=== PATIENT | male | born 1950 | race Caucasian/White ===

== ENCOUNTER 2017-03-12 09:28 | Inpatient (IN) | payer OTHER, MEDICAID ==
[~2017-03-12] VITALS: Ht 172.7 cm; Wt 75.8 kg
[2017-03-12] VITALS (13 sets, daily range): BP systolic 92–121
[2017-03-12] MEDS ORDERED: HYDROmorphone 1 MG INJ. 1 MG/ML AMPUL IVP ONE ×2 (09:45→11:00)
[2017-03-12] MEDS ORDERED: ONDANSETRON HCL 4 MG/2 ML VIAL IVP ONE ×2 (09:45→11:00)
[2017-03-12 09:53] LABS: BASOPHILS % (AUTO) 0.2 % (0.0-2.0); EOSINOPHILS # (AUTO) 0.1 K/uL (0.0-0.4); EOSINOPHILS % (AUTO) 0.5 % (0.0-4.0); HEMATOCRIT 27.5 % (36-54); HEMOGLOBIN 8.9 g/dL (14.0-18.0); LYMPHOCYTES # (AUTO) 1.1 K/uL (1.0-5.5); LYMPHOCYTES % (AUTO) 5.9 % (20.5-51.5); MEAN CORPUSCULAR HEMOGLOBIN 28 pg (27-31); MEAN CORPUSCULAR HGB CONC 32 % (32-36); MEAN CORPUSCULAR VOLUME 88 fL (79.0-98.0); MONOCYTES # (AUTO) 0.9 K/uL (0.0-1.0); MONOCYTES % (AUTO) 5.1 % (1.7-9.3); NEUTROPHILS # (AUTO) 16.2 K/uL (1.8-7.7); NEUTROPHILS % (AUTO) 88.3 % (40.0-70.0); PLATELET COUNT (AUTO) 513 K/uL (130-430); RED BLOOD CELL COUNT(AUTO) 3.13 MIL/uL (4.2-6.2); RED CELL DISTRIBUTION WIDTH 15.6 % (9.0-15.0); WHITE BLOOD COUNT (AUTO) 18.3 K/uL (4.8-10.8)
[2017-03-12] MEDS ORDERED: DILTIAZEM HCL 25 MG/5 ML VIAL IVP ONE ×2 (10:00→11:45)
[2017-03-12 10:02] LABS: CALCIUM 10.4 mg/dL (8.4-11.0); CREATININE 0.91 mg/dL (0.55-1.30)
[2017-03-12 10:05] LABS: INR 1.1 (0.80-1.20); PROTHROMBIN TIME 12.3 SECS (9.5-12.5)
[2017-03-12 10:07] LABS: POTASSIUM 2.9 mmol/L (3.5-5.1)
[2017-03-12 10:09] LABS: ALBUMIN 1.9 g/dL (3.4-4.8); TOTAL BILIRUBIN 0.3 mg/dL (0.0-1.0)
[2017-03-12] MEDS ORDERED: KCL 20 mEq in 100 mL (PREMIX) 100 ML IV ONE (10:15)
[2017-03-12] MEDS ORDERED: NS 500 ML IV ONE (10:15)
[2017-03-12] MEDS ORDERED: IOHEXOL 350 mgI/mL, 150 ML INFUS..BTL IV ONE (10:49)
[2017-03-12] MEDS ORDERED: DILTIAZEM HCL 156.25 MG in D5W 100 ML IV ONE (12:15)
[2017-03-12] MEDS ORDERED: INSU100V9 SUBCUT (12:30)
[2017-03-12] MEDS ORDERED: DILTIAZEM HCL 125 MG in D5W 100 ML IV ONE (12:30)
[2017-03-12] MEDS ORDERED: GLU500 PO (12:30)
[2017-03-12] MEDS ORDERED: SIMV80TA2 PO (12:30)
[2017-03-12] MEDS ORDERED: HYDR-1189 PO (12:30)
[2017-03-12] MEDS ORDERED: METO25TA3 PO (12:30)
[2017-03-12] MEDS ORDERED: ASPI81TA2 PO (12:30)
[2017-03-12] MEDS ORDERED: BENZ100C67 PO (12:30)
[2017-03-12] MEDS ORDERED: D5NS 500 ML IV ONE (12:45)
[2017-03-12] MEDS ORDERED: DEXTROSE 50%-WATER 50 ML DISP.SYRIN IVP PRN ×2 (13:00)
[2017-03-12] MEDS ORDERED: GLUCOSE 15 GM GEL (in 37.5 GM TUBE) PO PRN ×2 (13:00)
[2017-03-12] MEDS ORDERED: LEVALBUTEROL HCL 0.63 MG/3 ML VIAL.NEB INH PRN (14:15)
[2017-03-12] MEDS ORDERED: IPRATROPIUM BROM 0.5 MG/2.5 ML VIAL.NEB (ATROVENT) INH PRN (14:15)
[2017-03-12] MEDS ORDERED: ONDANSETRON HCL 4 MG/2 ML VIAL IVP PRN (15:30)
[2017-03-12] MEDS ORDERED: DOCUSATE SODIUM 100 MG CAPSULE PO PRN (15:30)
[2017-03-12] MEDS ORDERED: ZOLPIDEM TARTRATE 5 MG TABLET PO PRN (15:30)
[2017-03-12] MEDS ORDERED: LORazepam 2 MG/ML VIAL IVP PRN (15:30)
[2017-03-12] MEDS ORDERED: MORPHINE 2 MG/ML INJ. SYRINGE IVP PRN ×2 (15:30)
[2017-03-12] MEDS ORDERED: MAGNESIUM SULFATE 50 ML IV PRN (15:30)
[2017-03-12] MEDS ORDERED: PIPERACILLIN/TAZO 3.375/DEX-IS 50 ML IV SCH (15:30)
[2017-03-12] MEDS: INSULIN REGULAR, HUMAN 100 UNITS/ML, 10 ML VIAL (novoLIN R) SUBCUT PRN ×2 (16:45→20:45)
[2017-03-12] MEDS ORDERED: HYDROCORTISONE ACETATE 1 SUPP (ANUSOL HC) RC PRN (17:30)
[2017-03-12] MEDS: PIPERACILLIN/TAZO 3.375/DEX-IS 50 ML IV SCH ×2 (17:57→23:52)
[2017-03-12] MEDS: LEVALBUTEROL HCL 0.63 MG/3 ML VIAL.NEB INH SCH (20:15)
[2017-03-12] MEDS: IPRATROPIUM BROM 0.5 MG/2.5 ML VIAL.NEB (ATROVENT) INH SCH (20:15)
[2017-03-12] MEDS: HYDROmorphone 1 MG INJ. 1 MG/ML AMPUL IVP PRN (20:38)
[2017-03-12] MEDS ORDERED: DILTIAZEM HCL 30 MG TABLET PO ONE (22:00)
[2017-03-12] MEDS: HYDROcodone/ACETAMIN 10-325 MG TAB PO PRN (22:14)
[2017-03-13] VITALS (17 sets, daily range): BP systolic 109–143
[2017-03-13] MEDS: IPRATROPIUM BROM 0.5 MG/2.5 ML VIAL.NEB (ATROVENT) INH SCH ×4 (01:38→20:22)
[2017-03-13] MEDS: LEVALBUTEROL HCL 0.63 MG/3 ML VIAL.NEB INH SCH ×4 (01:38→20:22)
[2017-03-13] MEDS: HYDROcodone/ACETAMIN 10-325 MG TAB PO PRN ×4 (04:56→21:10)
[2017-03-13] MEDS: PIPERACILLIN/TAZO 3.375/DEX-IS 50 ML IV SCH ×4 (05:41→23:30)
[2017-03-13] MEDS: DILTIAZEM HCL 30 MG TABLET PO SCH ×4 (05:43→23:25)
[2017-03-13] MEDS: INSULIN REGULAR, HUMAN 100 UNITS/ML, 10 ML VIAL (novoLIN R) SUBCUT PRN ×4 (06:31→21:20)
[2017-03-13 06:50] LABS: ALBUMIN 1.7 g/dL (3.4-4.8); CALCIUM 9.6 mg/dL (8.4-11.0); CREATININE 0.78 mg/dL (0.55-1.30); TOTAL BILIRUBIN 0.3 mg/dL (0.0-1.0)
[2017-03-13 06:54] LABS: EOSINOPHILS # (AUTO) 0.1 K/uL (0.0-0.4); EOSINOPHILS % (AUTO) 0.4 % (0.0-4.0); HEMATOCRIT 24.4 % (36-54); HEMOGLOBIN 7.9 g/dL (14.0-18.0); LYMPHOCYTES # (AUTO) 0.6 K/uL (1.0-5.5); MEAN CORPUSCULAR HEMOGLOBIN 28 pg (27-31); MEAN CORPUSCULAR HGB CONC 32 % (32-36); MEAN CORPUSCULAR VOLUME 88 fL (79.0-98.0); MONOCYTES # (AUTO) 0.9 K/uL (0.0-1.0); MONOCYTES % (AUTO) 5.5 % (1.7-9.3); NEUTROPHILS # (AUTO) 13.9 K/uL (1.8-7.7); NEUTROPHILS % (AUTO) 90.1 % (40.0-70.0); PLATELET COUNT (AUTO) 430 K/uL (130-430); RED BLOOD CELL COUNT(AUTO) 2.78 MIL/uL (4.2-6.2); RED CELL DISTRIBUTION WIDTH 15.6 % (9.0-15.0); WHITE BLOOD COUNT (AUTO) 15.5 K/uL (4.8-10.8)
[2017-03-13 07:01] LABS: POTASSIUM 2.8 mmol/L (3.5-5.1)
[2017-03-13] MEDS: POTASSIUM CHLORIDE 10 MEQ TAB.PRT.SR PO PRN (07:10)
[2017-03-13] MEDS ORDERED: POTASSIUM CHLORIDE 20 MEQ TAB.PRT.SR PO ONE (10:30)
[2017-03-13 15:35] LABS: CALCIUM 9.7 mg/dL (8.4-11.0); CREATININE 0.96 mg/dL (0.55-1.30); POTASSIUM 3.2 mmol/L (3.5-5.1)
[2017-03-13] MEDS: ACETAMINOPHEN 325 MG TABLET PO PRN (21:09)
[2017-03-13] MEDS: HYDROmorphone 1 MG INJ. 1 MG/ML AMPUL IVP PRN (23:24)
[2017-03-14] VITALS (7 sets, daily range): BP systolic 102–137
[2017-03-14] MEDS: IPRATROPIUM BROM 0.5 MG/2.5 ML VIAL.NEB (ATROVENT) INH SCH ×4 (01:22→19:42)
[2017-03-14] MEDS: LEVALBUTEROL HCL 0.63 MG/3 ML VIAL.NEB INH SCH ×4 (01:22→19:42)
[2017-03-14] MEDS: HYDROcodone/ACETAMIN 10-325 MG TAB PO PRN ×3 (05:00→17:41)
[2017-03-14] MEDS: PIPERACILLIN/TAZO 3.375/DEX-IS 50 ML IV SCH ×3 (05:45→17:41)
[2017-03-14] MEDS: DILTIAZEM HCL 30 MG TABLET PO SCH ×2 (05:47→11:59)
[2017-03-14] MEDS: INSULIN REGULAR, HUMAN 100 UNITS/ML, 10 ML VIAL (novoLIN R) SUBCUT PRN ×4 (06:25→21:20)
[2017-03-14 06:59] LABS: HEMATOCRIT 24.8 % (36-54); HEMOGLOBIN 8.1 g/dL (14.0-18.0); MEAN CORPUSCULAR HEMOGLOBIN 29 pg (27-31); MEAN CORPUSCULAR HGB CONC 33 % (32-36); MEAN CORPUSCULAR VOLUME 88 fL (79.0-98.0); PLATELET COUNT (AUTO) 441 K/uL (130-430); RED BLOOD CELL COUNT(AUTO) 2.83 MIL/uL (4.2-6.2); RED CELL DISTRIBUTION WIDTH 15.6 % (9.0-15.0); WHITE BLOOD COUNT (AUTO) 16.6 K/uL (4.8-10.8)
[2017-03-14 07:06] LABS: CALCIUM 9.3 mg/dL (8.4-11.0); CREATININE 0.79 mg/dL (0.55-1.30); POTASSIUM 3.1 mmol/L (3.5-5.1)
[2017-03-14 07:42] LABS: BAND % (MANUAL) 3 % (0-6); BASOPHILS % (MANUAL) 0 % (0-2); EOSINOPHILS % (MANUAL) 0 % (0-7); LYMPHOCYTES % (MANUAL) 4 % (20-46); MONOCYTES % (MANUAL) 6 % (0-11)
[2017-03-14] MEDS: POTASSIUM CHLORIDE 10 MEQ TAB.PRT.SR PO PRN (08:37)
[2017-03-14] MEDS: HYDROmorphone 1 MG INJ. 1 MG/ML AMPUL IVP PRN (08:52)
[2017-03-14] MEDS ORDERED: POTASSIUM CHLORIDE 20 MEQ TAB.PRT.SR PO ONE (10:30)
[2017-03-14] MEDS ORDERED: BENZOCAINE/MENTHOL 1 EACH LOZENGE MM PRN (10:45)
[2017-03-14] MEDS ORDERED: LIDOCAINE VISCOUS 2%, 15 ML UDC MM PRN (10:45)
[2017-03-14] MEDS ORDERED: MAGNESIUM SULFATE 50 ML IV ONE (11:00)
[2017-03-14] MEDS: ACETAMINOPHEN 325 MG TABLET PO PRN (12:00)
[2017-03-14] MEDS ORDERED: AMIODARONE HCL 200 MG TABLET PO ONE (14:30)
[2017-03-14] MEDS ORDERED: DILTIAZEM HCL 120 MG CAP.SR.24H PO ONE (14:30)
[2017-03-14] MEDS: methylPREDNISolone SOD SUCC 40 MG/ML VIAL IVP SCH (21:03)
[2017-03-15] MEDS: PIPERACILLIN/TAZO 3.375/DEX-IS 50 ML IV SCH ×5 (00:27→23:48)
[2017-03-15 01:10] VITALS: BP_SYST 122
[2017-03-15] MEDS: LEVALBUTEROL HCL 0.63 MG/3 ML VIAL.NEB INH SCH ×4 (01:27→19:38)
[2017-03-15] MEDS: IPRATROPIUM BROM 0.5 MG/2.5 ML VIAL.NEB (ATROVENT) INH SCH ×4 (01:31→19:38)
[2017-03-15 04:00] VITALS: BP_SYST 118
[2017-03-15] MEDS: INSULIN REGULAR, HUMAN 100 UNITS/ML, 10 ML VIAL (novoLIN R) SUBCUT PRN ×4 (06:09→20:50)
[2017-03-15 07:19] LABS: BASOPHILS % (AUTO) 0.1 % (0.0-2.0); HEMOGLOBIN 8.5 g/dL (14.0-18.0); LYMPHOCYTES # (AUTO) 0.7 K/uL (1.0-5.5); LYMPHOCYTES % (AUTO) 3.5 % (20.5-51.5); MEAN CORPUSCULAR HEMOGLOBIN 29 pg (27-31); MEAN CORPUSCULAR HGB CONC 33 % (32-36); MEAN CORPUSCULAR VOLUME 88 fL (79.0-98.0); MONOCYTES # (AUTO) 0.1 K/uL (0.0-1.0); MONOCYTES % (AUTO) 0.7 % (1.7-9.3); NEUTROPHILS # (AUTO) 18.4 K/uL (1.8-7.7); NEUTROPHILS % (AUTO) 95.7 % (40.0-70.0); PLATELET COUNT (AUTO) 451 K/uL (130-430); RED BLOOD CELL COUNT(AUTO) 2.95 MIL/uL (4.2-6.2); RED CELL DISTRIBUTION WIDTH 15.8 % (9.0-15.0); WHITE BLOOD COUNT (AUTO) 19.2 K/uL (4.8-10.8)
[2017-03-15 07:26] LABS: CALCIUM 9.3 mg/dL (8.4-11.0); CREATININE 0.83 mg/dL (0.55-1.30); POTASSIUM 4.2 mmol/L (3.5-5.1)
[2017-03-15] MEDS: methylPREDNISolone SOD SUCC 40 MG/ML VIAL IVP SCH ×2 (09:27→21:02)
[2017-03-15] MEDS: LIDOCAINE VISCOUS 2%, 15 ML UDC MM SCH ×4 (09:33→20:51)
[2017-03-15] MEDS: BENZOCAINE/MENTHOL 1 EACH LOZENGE MM SCH ×4 (09:33→20:51)
[2017-03-15 12:57] VITALS: BP_SYST 118
[2017-03-15] MEDS: HYDROcodone/ACETAMIN 10-325 MG TAB PO PRN ×4 (13:45→20:58)
[2017-03-15] MEDS ORDERED: AMIODARONE HCL 200 MG TABLET PO ONE (13:45)
[2017-03-15 16:31] VITALS: BP_SYST 118
[2017-03-15 16:45] VITALS: BP_SYST 115
[2017-03-15 20:00] VITALS: BP_SYST 118
[2017-03-16 00:46] VITALS: BP_SYST 127
[2017-03-16] MEDS: LIDOCAINE VISCOUS 2%, 15 ML UDC MM SCH ×4 (01:00→14:45)
[2017-03-16] MEDS: BENZOCAINE/MENTHOL 1 EACH LOZENGE MM SCH ×4 (01:00→14:45)
[2017-03-16] MEDS: LEVALBUTEROL HCL 0.63 MG/3 ML VIAL.NEB INH SCH ×3 (01:15→13:26)
[2017-03-16] MEDS: IPRATROPIUM BROM 0.5 MG/2.5 ML VIAL.NEB (ATROVENT) INH SCH ×3 (01:16→13:26)
[2017-03-16] MEDS: PIPERACILLIN/TAZO 3.375/DEX-IS 50 ML IV SCH ×2 (05:32→12:35)
[2017-03-16] MEDS ORDERED: DILT120C89 PO (05:57)
[2017-03-16] MEDS ORDERED: RIVA15TA PO (05:57)
[2017-03-16] MEDS ORDERED: AMI200 PO (05:57)
[2017-03-16] MEDS ORDERED: SULF1TAB48 PO (05:57)
[2017-03-16] MEDS: INSULIN REGULAR, HUMAN 100 UNITS/ML, 10 ML VIAL (novoLIN R) SUBCUT PRN ×2 (06:02→12:38)
[2017-03-16 06:08] VITALS: BP_SYST 130
[2017-03-16 06:38] LABS: HEMATOCRIT 26.9 % (36-54); HEMOGLOBIN 8.4 g/dL (14.0-18.0); MEAN CORPUSCULAR HEMOGLOBIN 27 pg (27-31); MEAN CORPUSCULAR HGB CONC 31 % (32-36); MEAN CORPUSCULAR VOLUME 88 fL (79.0-98.0); PLATELET COUNT (AUTO) 542 K/uL (130-430); RED BLOOD CELL COUNT(AUTO) 3.07 MIL/uL (4.2-6.2)
[2017-03-16 06:43] LABS: CALCIUM 8.8 mg/dL (8.4-11.0); CREATININE 0.75 mg/dL (0.55-1.30); POTASSIUM 4.3 mmol/L (3.5-5.1)
[2017-03-16 07:03] LABS: WHITE BLOOD COUNT (AUTO) 21.7 K/uL (4.8-10.8)
[2017-03-16] MEDS ORDERED: RIVAROXABAN 15 MG TABLET PO SCH (08:00)
[2017-03-16 08:15] VITALS: BP_SYST 114
[2017-03-16 08:25] LABS: ATYPICAL LYMPHOCYTES % 0 % (0-0); BAND % (MANUAL) 2 % (0-6); BASOPHILS % (MANUAL) 0 % (0-2); EOSINOPHILS % (MANUAL) 0 % (0-7); LYMPHOCYTES % (MANUAL) 4 % (20-46); MONOCYTES % (MANUAL) 2 % (0-11)
[2017-03-16] MEDS: HYDROcodone/ACETAMIN 10-325 MG TAB PO PRN (08:59)
[2017-03-16] MEDS ORDERED: AMIODARONE HCL 200 MG TABLET PO SCH (09:00)
[2017-03-16] MEDS ORDERED: DILTIAZEM HCL 120 MG CAP.SR.24H PO SCH (09:00)
[2017-03-16] MEDS ORDERED: METOPROLOL SUCCINATE 25 MG TAB.SR.24H (TOPROL XL) PO SCH (09:00)
[2017-03-16] MEDS: methylPREDNISolone SOD SUCC 40 MG/ML VIAL IVP SCH (09:44)
[2017-03-16 11:43] VITALS: BP_SYST 110
[2017-03-16 15:34] VITALS: BP_SYST 109
[2017-03-16 15:39] VITALS: BP_SYST 109
[2017-03-17] MEDS ORDERED: PREDNISONE 20 MG TABLET PO SCH (09:00)
== END 2017-03-16 17:00 | disposition home health service (06) | DRG 377 ==
LOC: SED 09:28 → SIC 12:42 → STU 03-13 14:26
PROVIDERS: ADMIT General Practice; ATTEND General Practice
DX: K62.5 Hemorrhage of anus and rectum (principal); I26.99 Other pulmonary embolism without acute cor pulmonale; J69.0 Pneumonitis due to inhalation of food and vomit; E43 Unspecified severe protein-calorie malnutrition; I82.401 Acute embolism and thrombosis of unspecified deep veins of right lower extremity; C79.31 Secondary malignant neoplasm of brain; E11.9 Type 2 diabetes mellitus without complications; D50.0 Iron deficiency anemia secondary to blood loss (chronic); C79.51 Secondary malignant neoplasm of bone; C34.90 Malignant neoplasm of unspecified part of unspecified bronchus or lung; E78.5 Hyperlipidemia, unspecified; K92.2 Gastrointestinal hemorrhage, unspecified; I48.0 Paroxysmal atrial fibrillation; J98.01 Acute bronchospasm; K64.9 Unspecified hemorrhoids; E66.9 Obesity, unspecified; K59.09 Other constipation; K62.7 Radiation proctitis; E87.6 Hypokalemia; J44.9 Chronic obstructive pulmonary disease, unspecified; I25.10 Atherosclerotic heart disease of native coronary artery without angina pectoris; I10 Essential (primary) hypertension; I25.2 Old myocardial infarction; Z95.5 Presence of coronary angioplasty implant and graft; Z87.891 Personal history of nicotine dependence; Z92.3 Personal history of irradiation; Z79.899 Other long term (current) drug therapy; Z79.82 Long term (current) use of aspirin; Z68.25 Body mass index [BMI] 25.0-25.9, adult
CPT/HCPCS: 36415; 71010; 71275; 80048; 80053; 82272; 82962; 83605; 83735-TC; 83880; 84484; 85007; 85025; 85027; 85610-TC; 85730-TC; 87040-TC; 87081; 93005; 93306; 94640; 94760; 96365; 96375; 96376; 97110-GP; 97116-GP; 97530-GP; 99291; 99292; J1030; J1170; J1815; J1956; J2001; J2270; J2405; J2543; J3475; J3480; J3490; J7040; J7042; J7050; J7060; Q9967

== ENCOUNTER 2017-03-28 23:23 | Inpatient (IN) | payer OTHER, MEDICAID ==
[~2017-03-28] VITALS: Ht 170.2 cm; Wt 78.5 kg
[2017-03-28 23:23] VITALS: BP_SYST 152
[~2017-03-28 23:23] MED LIST: AMI200 PO; ASPI81TA2 PO; BENZ100C67 PO; DILT120C89 PO; GLU500 PO; HYDR-1189 PO; INSU100V9 SUBCUT; METO25TA3 PO; RIVA15TA PO; SIMV80TA2 PO; SULF1TAB48 PO
[2017-03-28] MEDS ORDERED: NACL 0.9% 1,000 ML IV ONE (23:30)
[2017-03-28 23:59] LABS: MEAN CORPUSCULAR HEMOGLOBIN 28 pg (27-31); MEAN CORPUSCULAR HGB CONC 33 % (32-36)
[2017-03-29] VITALS (8 sets, daily range): BP systolic 104–127
[2017-03-29 00:01] LABS: HEMATOCRIT 26.3 % (36-54); HEMOGLOBIN 8.6 g/dL (14.0-18.0); MEAN CORPUSCULAR VOLUME 86 fL (79.0-98.0); PLATELET COUNT (AUTO) 482 K/uL (130-430); RED BLOOD CELL COUNT(AUTO) 3.05 MIL/uL (4.2-6.2); RED CELL DISTRIBUTION WIDTH 16.9 % (9.0-15.0); WHITE BLOOD COUNT (AUTO) 23.1 K/uL (4.8-10.8)
[2017-03-29] MEDS ORDERED: LEVO750T45 PO (00:02)
[2017-03-29] MEDS ORDERED: DOCU-144 PO (00:02)
[2017-03-29] MEDS ORDERED: DILT240C54 PO (00:02)
[2017-03-29] MEDS ORDERED: PIPERACILLIN/TAZOBACTAM 3.375 GM/VIAL (ZOSYN) IV ONE ×2 (00:11→02:07)
[2017-03-29] MEDS ORDERED: PIPERACILLIN/TAZO 3.375 GM in NS 50 ML IV ONE (00:15)
[2017-03-29 00:17] LABS: INR 1.6 (0.80-1.20); PROTHROMBIN TIME 16.4 SECS (9.5-12.5)
[2017-03-29 00:24] LABS: CALCIUM 8.6 mg/dL (8.4-11.0); CREATININE 0.9 mg/dL (0.55-1.30); POTASSIUM 3.9 mmol/L (3.5-5.1)
[2017-03-29 00:28] LABS: ATYPICAL LYMPHOCYTES % 0 % (0-0); BAND % (MANUAL) 3 % (0-6); BASOPHILS % (MANUAL) 0 % (0-2); EOSINOPHILS % (MANUAL) 1 % (0-7); LYMPHOCYTES % (MANUAL) 1 % (20-46); MONOCYTES % (MANUAL) 2 % (0-11)
[2017-03-29 00:33] LABS: ALBUMIN 1.7 g/dL (3.4-4.8); TOTAL BILIRUBIN 0.4 mg/dL (0.0-1.0)
[2017-03-29 00:44] LABS: BILIRUBIN,URINE NEGATIVE (NEGATIVE); BLOOD, URINE TRACE (NEGATIVE); CLARITY/URINE CLEAR (CLEAR); COLOR,URINE YELLOW (YELLOW); GLUCOSE,URINE NEGATIVE (NEGATIVE); KETONES,URINE NEGATIVE (NEGATIVE); LEUKOCYTE ESTERASE ,URINE NEGATIVE (NEGATIVE); NITRITE, URINE NEGATIVE (NEGATIVE); PROTEIN URINE NEGATIVE (NEGATIVE); UROBILINOGEN,URINE 0.2 (0.2-1.0)
[2017-03-29 00:50] LABS: BACTERIA,URINE FEW /HPF (None Seen); MUCUS,URINE 1+ /LPF (None Seen); RBC,URINE 0-3 /HPF (0-3)
[2017-03-29] MEDS ORDERED: NACL 0.9% 1,000 ML IV ONE (01:00)
[2017-03-29] MEDS ORDERED: VANCOMYCIN HCL 1,000 MG in NS 250 ML IV ONE (01:00)
[2017-03-29] MEDS ORDERED: VANCOMYCIN HCL 1000 MG/VIAL IV ONE (02:07)
[2017-03-29] MEDS: NACL 0.9% 1,000 ML IV SCH ×4 (02:19→21:38)
[2017-03-29] MEDS: PIPERACILLIN/TAZO 3.375 GM in NS 50 ML IV SCH ×3 (06:08→19:25)
[2017-03-29] MEDS: INSULIN REGULAR, HUMAN 100 UNITS/ML, 10 ML VIAL (novoLIN R) SUBCUT PRN ×2 (06:11→12:34)
[2017-03-29] MEDS ORDERED: DOCUSATE SODIUM 100 MG CAPSULE PO SCH (09:00)
[2017-03-29] MEDS ORDERED: RIVAROXABAN 15 MG TABLET PO SCH (09:15)
[2017-03-29] MEDS ORDERED: INSULIN GLARGINE 100 UNITS/ML 10 ML VIAL SUBCUT SCH (09:15)
[2017-03-29] MEDS ORDERED: IPRATROPIUM/ALBUTEROL SULFATE 3 ML AMPUL.NEB INH PRN (09:30)
[2017-03-29] MEDS: AMIODARONE HCL 200 MG TABLET PO SCH (10:26)
[2017-03-29] MEDS: HYDROcodone/ACETAMIN 5-325 MG TAB (NORCO/ VICODIN) PO PRN (10:27)
[2017-03-29] MEDS ORDERED: MINERAL OIL 30 ML UDC PO ONE (10:30)
[2017-03-29] MEDS ORDERED: LACTULOSE 20 GM/30 ML UDC PO ONE (10:30)
[2017-03-29] MEDS ORDERED: DOCUSATE SODIUM 250 MG CAPSULE PO ONE (10:30)
[2017-03-29 11:12] LABS: CALCIUM 8.8 mg/dL (8.4-11.0); CREATININE 0.75 mg/dL (0.55-1.30); POTASSIUM 3.7 mmol/L (3.5-5.1)
[2017-03-29 11:13] LABS: EOSINOPHILS # (AUTO) 0.1 K/uL (0.0-0.4); EOSINOPHILS % (AUTO) 0.5 % (0.0-4.0); HEMATOCRIT 32.1 % (36-54); HEMOGLOBIN 10.3 g/dL (14.0-18.0); LYMPHOCYTES # (AUTO) 0.3 K/uL (1.0-5.5); LYMPHOCYTES % (AUTO) 1.4 % (20.5-51.5); MEAN CORPUSCULAR HEMOGLOBIN 28 pg (27-31); MEAN CORPUSCULAR HGB CONC 32 % (32-36); MEAN CORPUSCULAR VOLUME 88 fL (79.0-98.0); MONOCYTES # (AUTO) 0.3 K/uL (0.0-1.0); MONOCYTES % (AUTO) 1.6 % (1.7-9.3); PLATELET COUNT (AUTO) 505 K/uL (130-430); RED BLOOD CELL COUNT(AUTO) 3.65 MIL/uL (4.2-6.2); RED CELL DISTRIBUTION WIDTH 16.9 % (9.0-15.0); WHITE BLOOD COUNT (AUTO) 21.3 K/uL (4.8-10.8)
[2017-03-29 11:15] LABS: BASOPHILS # (AUTO) 0.1 K/uL (0.0-0.2); BASOPHILS % (AUTO) 0.5 % (0.0-2.0)
[2017-03-29 11:16] LABS: NEUTROPHILS # (AUTO) 20.4 K/uL (1.8-7.7)
[2017-03-29] MEDS: IPRATROPIUM/ALBUTEROL SULFATE 3 ML AMPUL.NEB INH SCH ×4 (11:27→23:12)
[2017-03-29] MEDS ORDERED: PANTOPRAZOLE SODIUM 40 MG/VIAL (PROTONIX) IVP ONE (13:00)
[2017-03-29] MEDS: BENZONATATE 100 MG CAPSULE (TESSALON) PO SCH ×2 (14:49→21:38)
[2017-03-29] MEDS ORDERED: ONDANSETRON HCL 4 MG/2 ML VIAL ONE (15:44)
[2017-03-29] MEDS ORDERED: ONDANSETRON HCL 4 MG/2 ML VIAL IVP PRN (15:45)
[2017-03-29] MEDS: ACETAMINOPHEN 325 MG TABLET PO PRN (16:58)
[2017-03-29 17:45] LABS: BASOPHILS # (AUTO) 0.2 K/uL (0.0-0.2); BASOPHILS % (AUTO) 0.6 % (0.0-2.0); EOSINOPHILS # (AUTO) 0.1 K/uL (0.0-0.4); EOSINOPHILS % (AUTO) 0.5 % (0.0-4.0); HEMATOCRIT 25.1 % (36-54); LYMPHOCYTES # (AUTO) 0.3 K/uL (1.0-5.5); LYMPHOCYTES % (AUTO) 1.3 % (20.5-51.5); MEAN CORPUSCULAR HEMOGLOBIN 30 pg (27-31); MEAN CORPUSCULAR HGB CONC 34 % (32-36); MEAN CORPUSCULAR VOLUME 89 fL (79.0-98.0); MONOCYTES # (AUTO) 0.5 K/uL (0.0-1.0); MONOCYTES % (AUTO) 1.8 % (1.7-9.3); NEUTROPHILS # (AUTO) 24.6 K/uL (1.8-7.7); NEUTROPHILS % (AUTO) 95.8 % (40.0-70.0); PLATELET COUNT (AUTO) 459 K/uL (130-430); RED BLOOD CELL COUNT(AUTO) 2.84 MIL/uL (4.2-6.2); RED CELL DISTRIBUTION WIDTH 17.1 % (9.0-15.0); WHITE BLOOD COUNT (AUTO) 25.7 K/uL (4.8-10.8)
[2017-03-29 17:46] LABS: HEMOGLOBIN 8.4 g/dL (14.0-18.0)
[2017-03-29] MEDS: VANCOMYCIN HCL 1,000 MG in NS 250 ML IV SCH (19:59)
[2017-03-29] MEDS: PANTOPRAZOLE SODIUM 40 MG/VIAL (PROTONIX) IVP SCH (21:37)
[2017-03-29] MEDS: DOCUSATE SODIUM 250 MG CAPSULE PO SCH (21:38)
[2017-03-30] VITALS (7 sets, daily range): BP systolic 103–141
[2017-03-30] MEDS: PIPERACILLIN/TAZO 3.375 GM in NS 50 ML IV SCH ×5 (00:37→23:57)
[2017-03-30] MEDS: ACETAMINOPHEN 325 MG TABLET PO PRN ×2 (01:31→16:30)
[2017-03-30] MEDS: HYDROcodone/ACETAMIN 5-325 MG TAB (NORCO/ VICODIN) PO PRN ×3 (02:04→19:49)
[2017-03-30] MEDS: IPRATROPIUM/ALBUTEROL SULFATE 3 ML AMPUL.NEB INH SCH ×5 (03:00→23:38)
[2017-03-30] MEDS: NACL 0.9% 1,000 ML IV SCH ×4 (05:40→18:51)
[2017-03-30] MEDS: VANCOMYCIN HCL 1,000 MG in NS 250 ML IV SCH (06:32)
[2017-03-30 07:07] LABS: BASOPHILS # (AUTO) 0.1 K/uL (0.0-0.2); BASOPHILS % (AUTO) 0.3 % (0.0-2.0); EOSINOPHILS # (AUTO) 0.1 K/uL (0.0-0.4); EOSINOPHILS % (AUTO) 0.7 % (0.0-4.0); HEMATOCRIT 24.4 % (36-54); LYMPHOCYTES # (AUTO) 0.3 K/uL (1.0-5.5); LYMPHOCYTES % (AUTO) 1.8 % (20.5-51.5); MEAN CORPUSCULAR HEMOGLOBIN 29 pg (27-31); MEAN CORPUSCULAR HGB CONC 33 % (32-36); MEAN CORPUSCULAR VOLUME 87 fL (79.0-98.0); MONOCYTES # (AUTO) 0.7 K/uL (0.0-1.0); MONOCYTES % (AUTO) 3.9 % (1.7-9.3); NEUTROPHILS # (AUTO) 17.3 K/uL (1.8-7.7); NEUTROPHILS % (AUTO) 93.3 % (40.0-70.0); PLATELET COUNT (AUTO) 407 K/uL (130-430); RED BLOOD CELL COUNT(AUTO) 2.79 MIL/uL (4.2-6.2); RED CELL DISTRIBUTION WIDTH 16.8 % (9.0-15.0)
[2017-03-30 07:22] LABS: WHITE BLOOD COUNT (AUTO) 18.5 K/uL (4.8-10.8)
[2017-03-30 07:27] LABS: CALCIUM 7.9 mg/dL (8.4-11.0); CREATININE 0.76 mg/dL (0.55-1.30); POTASSIUM 3.1 mmol/L (3.5-5.1)
[2017-03-30] MEDS ORDERED: ASPIRIN 81 MG TAB.CHEW PO SCH (09:00)
[2017-03-30] MEDS ORDERED: DILTIAZEM HCL 240 MG CAP.SR.24H PO SCH (09:00)
[2017-03-30] MEDS: LACTULOSE 20 GM/30 ML UDC PO SCH (09:34)
[2017-03-30] MEDS: PANTOPRAZOLE SODIUM 40 MG/VIAL (PROTONIX) IVP SCH ×2 (09:34→20:28)
[2017-03-30] MEDS: DOCUSATE SODIUM 250 MG CAPSULE PO SCH ×2 (09:35→20:28)
[2017-03-30] MEDS: SIMVASTATIN 40 MG TABLET PO SCH (09:35)
[2017-03-30] MEDS: BENZONATATE 100 MG CAPSULE (TESSALON) PO SCH ×2 (09:35→14:46)
[2017-03-30] MEDS: AMIODARONE HCL 200 MG TABLET PO SCH (09:36)
[2017-03-30] MEDS: FLUCONAZOLE 200 MG TABLET (DIFLUCAN) PO SCH (11:00)
[2017-03-30] MEDS: INSULIN REGULAR, HUMAN 100 UNITS/ML, 10 ML VIAL (novoLIN R) SUBCUT PRN ×3 (11:59→20:42)
[2017-03-30] MEDS ORDERED: FLUCONAZOLE 200 MG TABLET (DIFLUCAN) PO ONE (12:00)
[2017-03-30] MEDS: AZITHROMYCIN 500 MG in NS 250 ML IV SCH (13:26)
[2017-03-30] MEDS: DILTIAZEM HCL 30 MG TABLET PO SCH ×2 (17:30→22:00)
[2017-03-30] MEDS ORDERED: DILTIAZEM HCL 30 MG TABLET PO ONE (18:45)
[2017-03-30] MEDS: POTASSIUM CHLORIDE 20 MEQ TAB.PRT.SR PO SCH (20:28)
[2017-03-30] MEDS: BENZONATATE 100 MG CAPSULE (TESSALON) PO PRN (23:54)
[2017-03-31] VITALS (7 sets, daily range): BP systolic 98–137
[2017-03-31] MEDS: ACETAMINOPHEN 325 MG TABLET PO PRN ×3 (00:04→21:52)
[2017-03-31] MEDS: IPRATROPIUM/ALBUTEROL SULFATE 3 ML AMPUL.NEB INH SCH ×6 (03:00→23:00)
[2017-03-31] MEDS: PIPERACILLIN/TAZO 3.375 GM in NS 50 ML IV SCH ×4 (06:01→23:25)
[2017-03-31] MEDS: DILTIAZEM HCL 30 MG TABLET PO SCH ×3 (06:05→21:47)
[2017-03-31 07:10] LABS: BASOPHILS % (AUTO) 0.1 % (0.0-2.0); EOSINOPHILS # (AUTO) 0.2 K/uL (0.0-0.4); HEMATOCRIT 25.9 % (36-54); HEMOGLOBIN 8.4 g/dL (14.0-18.0); LYMPHOCYTES # (AUTO) 0.6 K/uL (1.0-5.5); LYMPHOCYTES % (AUTO) 3.1 % (20.5-51.5); MEAN CORPUSCULAR HEMOGLOBIN 29 pg (27-31); MEAN CORPUSCULAR HGB CONC 32 % (32-36); MEAN CORPUSCULAR VOLUME 89 fL (79.0-98.0); MONOCYTES # (AUTO) 1.1 K/uL (0.0-1.0); MONOCYTES % (AUTO) 5.4 % (1.7-9.3); NEUTROPHILS # (AUTO) 18.3 K/uL (1.8-7.7); NEUTROPHILS % (AUTO) 90.4 % (40.0-70.0); PLATELET COUNT (AUTO) 370 K/uL (130-430); RED CELL DISTRIBUTION WIDTH 16.1 % (9.0-15.0); WHITE BLOOD COUNT (AUTO) 20.2 K/uL (4.8-10.8)
[2017-03-31 07:37] LABS: ALBUMIN 1.4 g/dL (3.4-4.8); CALCIUM 8.4 mg/dL (8.4-11.0); CREATININE 0.77 mg/dL (0.55-1.30); POTASSIUM 3.4 mmol/L (3.5-5.1); TOTAL BILIRUBIN 0.6 mg/dL (0.0-1.0)
[2017-03-31] MEDS: PANTOPRAZOLE SODIUM 40 MG/VIAL (PROTONIX) IVP SCH ×2 (08:30→21:45)
[2017-03-31] MEDS: SIMVASTATIN 40 MG TABLET PO SCH (08:30)
[2017-03-31] MEDS: POTASSIUM CHLORIDE 20 MEQ TAB.PRT.SR PO SCH ×2 (08:30→21:46)
[2017-03-31] MEDS: LACTULOSE 20 GM/30 ML UDC PO SCH (08:30)
[2017-03-31] MEDS: BENZONATATE 100 MG CAPSULE (TESSALON) PO PRN (08:31)
[2017-03-31] MEDS: FLUCONAZOLE 200 MG TABLET (DIFLUCAN) PO SCH (08:31)
[2017-03-31] MEDS: AMIODARONE HCL 200 MG TABLET PO SCH (08:31)
[2017-03-31] MEDS: DOCUSATE SODIUM 250 MG CAPSULE PO SCH ×2 (08:31→21:47)
[2017-03-31] MEDS: HYDROcodone/ACETAMIN 5-325 MG TAB (NORCO/ VICODIN) PO PRN ×3 (08:40→23:24)
[2017-03-31] MEDS: INSULIN REGULAR, HUMAN 100 UNITS/ML, 10 ML VIAL (novoLIN R) SUBCUT PRN ×2 (11:55→21:52)
[2017-03-31] MEDS: AZITHROMYCIN 500 MG in NS 250 ML IV SCH (12:25)
[2017-03-31] MEDS ORDERED: ENOXAPARIN SODIUM 40 MG/0.4 ML SYRINGE SUBCUT ONE (22:15)
[2017-03-31] MEDS: ENOXAPARIN SODIUM 40 MG/0.4 ML SYRINGE SUBCUT SCH (22:39)
[2017-04-01] VITALS: BP_SYST 124
[2017-04-01] MEDS: IPRATROPIUM/ALBUTEROL SULFATE 3 ML AMPUL.NEB INH SCH ×3 (03:00→11:00)
[2017-04-01 05:30] VITALS: BP_SYST 134
[2017-04-01] MEDS: PIPERACILLIN/TAZO 3.375 GM in NS 50 ML IV SCH (06:57)
[2017-04-01] MEDS: INSULIN REGULAR, HUMAN 100 UNITS/ML, 10 ML VIAL (novoLIN R) SUBCUT PRN (07:03)
[2017-04-01] MEDS: DILTIAZEM HCL 30 MG TABLET PO SCH (07:12)
[2017-04-01 07:16] LABS: CALCIUM 8.8 mg/dL (8.4-11.0); CREATININE 0.79 mg/dL (0.55-1.30)
[2017-04-01 08:00] VITALS: BP_SYST 129
[2017-04-01 08:03] LABS: HEMATOCRIT 28.8 % (36-54); HEMOGLOBIN 9.4 g/dL (14.0-18.0); MEAN CORPUSCULAR HEMOGLOBIN 30 pg (27-31); MEAN CORPUSCULAR HGB CONC 33 % (32-36); MEAN CORPUSCULAR VOLUME 91 fL (79.0-98.0); PLATELET COUNT (AUTO) 405 K/uL (130-430); RED BLOOD CELL COUNT(AUTO) 3.17 MIL/uL (4.2-6.2); RED CELL DISTRIBUTION WIDTH 17.4 % (9.0-15.0); WHITE BLOOD COUNT (AUTO) 20.1 K/uL (4.8-10.8)
[2017-04-01 08:16] LABS: POTASSIUM 3.9 mmol/L (3.5-5.1)
[2017-04-01] MEDS: ACETAMINOPHEN 325 MG TABLET PO PRN (08:50)
[2017-04-01] MEDS: ENOXAPARIN SODIUM 40 MG/0.4 ML SYRINGE SUBCUT SCH (08:50)
[2017-04-01] MEDS: PANTOPRAZOLE SODIUM 40 MG/VIAL (PROTONIX) IVP SCH (08:50)
[2017-04-01] MEDS: LACTULOSE 20 GM/30 ML UDC PO SCH (08:50)
[2017-04-01] MEDS: FLUCONAZOLE 200 MG TABLET (DIFLUCAN) PO SCH (08:51)
[2017-04-01] MEDS: DOCUSATE SODIUM 250 MG CAPSULE PO SCH (08:51)
[2017-04-01] MEDS: AMIODARONE HCL 200 MG TABLET PO SCH (08:51)
[2017-04-01] MEDS: POTASSIUM CHLORIDE 20 MEQ TAB.PRT.SR PO SCH (08:51)
[2017-04-01] MEDS: SIMVASTATIN 40 MG TABLET PO SCH (08:51)
[2017-04-01] MEDS: HYDROcodone/ACETAMIN 5-325 MG TAB (NORCO/ VICODIN) PO PRN (09:04)
[2017-04-01 10:01] LABS: BAND % (MANUAL) 12 % (0-6); BASOPHILS % (MANUAL) 0 % (0-2); EOSINOPHILS % (MANUAL) 0 % (0-7); LYMPHOCYTES % (MANUAL) 2 % (20-46); MONOCYTES % (MANUAL) 5 % (0-11)
== END 2017-04-01 11:50 | disposition left against medical advice (07) | DRG 871 ==
LOC: SED 23:23 → STU 03-29 01:00
PROVIDERS: ADMIT Internal Medicine; ATTEND Internal Medicine
DX: A41.9 Sepsis, unspecified organism (principal); J18.9 Pneumonia, unspecified organism; E43 Unspecified severe protein-calorie malnutrition; C79.51 Secondary malignant neoplasm of bone; C79.31 Secondary malignant neoplasm of brain; I95.9 Hypotension, unspecified; D68.59 Other primary thrombophilia; K92.2 Gastrointestinal hemorrhage, unspecified; I48.0 Paroxysmal atrial fibrillation; D63.8 Anemia in other chronic diseases classified elsewhere; K59.00 Constipation, unspecified; E11.9 Type 2 diabetes mellitus without complications; E78.5 Hyperlipidemia, unspecified; I10 Essential (primary) hypertension; I25.10 Atherosclerotic heart disease of native coronary artery without angina pectoris; K64.9 Unspecified hemorrhoids; Z85.118 Personal history of other malignant neoplasm of bronchus and lung; Z86.718 Personal history of other venous thrombosis and embolism; Z92.3 Personal history of irradiation; Z85.038 Personal history of other malignant neoplasm of large intestine; Z87.891 Personal history of nicotine dependence; Z68.27 Body mass index [BMI] 27.0-27.9, adult
CPT/HCPCS: 36415; 71010; 80048; 80053; 81000-TC; 82272; 82962; 83605; 83735-TC; 84484; 85007; 85025; 85027; 85610-TC; 85651-TC; 85730-TC; 86635; 86738; 86886; 86900; 86901; 86920; 87040-TC; 87081; 87086; 88104; 88305; 88312; 93005; 94640; 94760; 96361; 96365; 99285; C9113; J0456; J1650; J1815; J2405; J2543; J3370; J7030; J7040; J7050; P9021